=== PATIENT | female | born 1975 | race Caucasian/White ===

== ENCOUNTER 2020-10-27 16:11 | Inpatient (IN) ==
[2020-10-27] MEDS ORDERED: diphenhydrAMINE 50 MG/ML VIAL IV STA (17:10)
[2020-10-27] MEDS ORDERED: ONDANSETRON INJ 2 MG/ML 2 ML VIAL IV STA (17:10)
[2020-10-27] MEDS ORDERED: LABETALOL HCL IV 5 MG/ML 20ML IV STA (17:10)
[2020-10-27 17:49] LABS: Basophils # (auto) 0.03 K/uL (0-0.2); Basophils % (auto) 0.3 %; Hematocrit (blood only) 43.6 % (37-47); Hemoglobin 14.7 g/dL (12.0-16.0); Immature Granulocytes # (auto) 0.01 K/uL (0.00-0.02); Immature Granulocytes % (auto) 0.1 %; Lymphocytes # (auto) 0.96 K/uL (1.2-3.4); Mean Corpuscular Hemoglobin 29.7 pg (25-34); Mean Corpuscular Hgb Conc 33.7 g/dL (32-36); Mean Corpuscular Volume 88.1 fL (80-100); Mean Platelet Volume 10.8 fL (7.4-10.4); Monocytes # (auto) 0.41 K/uL (0.11-0.59); Monocytes % (auto) 4.3 %; Neutrophils # (auto) 8.17 K/uL (1.4-6.5); Neutrophils % (auto) 85.3 %; Platelet Count 354 K/uL (130-400); RDW Coefficient of Variation 12.6 % (11.5-14.5); RDW Standard Deviation 40.5 fL (36.4-46.3); Red Blood Count 4.95 M/uL (4.2-5.4); White Blood Count 9.58 K/uL (4.8-10.8)
--- NOTE | 2020-10-27 18:00 | CT Scan Report ---
CT SCAN OF THE BRAIN WITHOUT IV CONTRAST CLINICAL HISTORY: Dizziness and nausea. Hypertension. COMPARISON STUDY: No priors. TECHNIQUE: Unenhanced axial CT scan of the brain is performed from the vertex to the skull base. A d ose lowering technique was utilized adhering to the principles of ALARA. CT DOSE: 614.27 mGy.cm FINDINGS: Brain parenchyma: The brain parenchyma is normal in appearance. There is no hemorrhage, mass effect, or evidence of acute territorial ischemia by CT criteria. Nieto-white matter differentiation is preser ashanti. No extra-axial fluid collection is seen. Ventricles, sulci, cisterns: Normal in configuration. Intracranial vasculature: The visualized intracranial vasculature at the skull base is normal in appe arance. Calvarium: Unremarkable. Sinuses and mastoids: The visualized paranasal sinuses are clear. The mastoid air cells are well pneu matized. Orbits: The bony orbits are grossly intact. IMPRESSION: No acute intracranial abnormality. ACT 112: Negative or not required by law. Electronically signed by: Serjio Vargas M.D. 10/27/2020 5:59 PM
--- NOTE | 2020-10-27 18:03 | XRay Report ---
SINGLE VIEW CHEST CLINICAL HISTORY: Hypertension. FINDINGS: 2 AP, portable, upright chest radiographs are obtained. No prior studies are available for comparison at the time of dictation. The cardiomediastinal silhouette is unremarkable noting mild at herosclerotic calcification of the thoracic aorta. The lungs and pleural spaces are clear. No pneumot horax is seen. The bony thorax is grossly intact. IMPRESSION: No active disease in the chest. ACT 112: Negative or not required by law. Electronically signed by: Serjio Vargas M.D. 10/27/2020 6:02 PM
[2020-10-27 18:08] LABS: Albumin Level 3.8 gm/dl (3.4-5.0); BUN Creatinine Ratio 9.6 (10-20); Calcium 9.1 mg/dl (8.5-10.1); Creatinine Clr Calc Pharmacy 90.5 ml/min; Est GFR (African American) 118.4; Est GFR (Non-African American) 102.1; Potassium 4.2 mmol/L (3.5-5.1)
[2020-10-27 18:11] LABS: Albumin Globulin Ratio 0.9 (0.9-2); Bilirubin,Total 0.4 mg/dl (0.2-1); Globulin 4.1 gm/dl (2.5-4.0); Total Protein 7.9 gm/dl (6.4-8.2)
[2020-10-27] MEDS ORDERED: hydrALAZINE HCL 20 MG/ML VIAL IV STA ×2 (18:25→19:08)
--- NOTE | 2020-10-27 21:38 | History & Physical Report ---
Date of Service October 27, 2020 Assessment & Plan (1) Hypertensive urgency: 45-year-old female with no significant documented past medical history presents with concerns of dizziness admitted for hypertensive urgency. Hypertensive urgency Admit to med telemetry -BP as high as 243/179 on admission. No evidence of end organ injury. Urine microalbumin ordered and pending Patient does not have a PCP, and thus is not on any BP medications. It is likely the story that this is not new onset, rather undocumented history of such In ER patient received IV hydralazine 10 mg x 2, IV labetalol 10 mg We will start patient on p.o. lisinopril 20 mg and p.o. amlodipine 5 mg. Can titrate as necessary PRN IV hydralazine ordered Defer secondary hypertension work-up at present FEN/GI: Regular diet DVT prophylaxis: Low risk per admission calc, SCDs/ambulation CODE STATUS: Full code Dispo: Med telemetry History of Present Illness Chief Complaint: Dizziness Primary Care Provider: NO PCP 45-year-old female with no significant documented past medical history presents with concerns of dizziness that started yesterday afternoon. Patient notes that she was at work and felt dizzy, unsteady on her feet. However she attributed this to not eating or drinking all day. This morning when patient woke up she noted that the dizziness was even worse. Noting that she had to 'crawl to the bathroom.' No previous occurrence such as this ever before. Associated fatigue and headache. Patient otherwise denies any fevers, chills, sweats, chest pain, palpitations, shortness of breath, syncope or presyncope, diaphoresis, edema, visual changes, abdominal pain, urinary symptoms, recent travel anywhere or known sick contacts. Denies any other neurologic deficits such as slurred speech, focal weakness or numbness anywhere. Patient with no other acute concerns complaints. Upon arrival to ER BP as high as 243/179. Patient does endorse family history of hypertension in her father. Of note patient does not follow with any sort of PCP/family doctor. Does note that when she has gone to the dentist in the past they have told her that she has high blood pressure, patient does not recall exact numbers. Pertinent labs: Unremarkable CBC CMP EKG: NSR Chest x-ray: No active disease in the chest. Head CT: No acute intracranial abnormality. ER course: IV Benadryl 25 mg, IV hydralazine 10 mg x 2, IV labetalol 10 mg, IV Zofran 4 mg Allergies Allergy/AdvReac Type Severity Reaction Status Date / Time No Known Allergies Allergy Unknown NKA Unverified 12/01/02 08:19 Home Medications Medication Instructions Recorded Confirmed Type ibuprofen [Advil] 200 mg PO Q6H PRN 10/27/20 10/27/20 History multivitamin 1 tab PO QAM 10/27/20 10/27/20 History multivitamin with minerals 1 tab PO DAILY 10/27/20 10/27/20 History [Hair,Skin and Nails] amlodipine [Norvasc] 5 mg PO QAM #30 tab 10/28/20 Rx lisinopril 20 mg PO QAM #30 tab 10/28/20 Rx Past Med/Surg History Social History Smoking Status: Never smoker Do You Dip or Chew Tobacco: No; Hx Alcohol Use: No Hx Substance Use: No Preferred Language: Gambian Communication Ability: Effective [employer] Remover Required: No Beliefs That Will Affect Care: None Current Living Situation: Alone Current Living Situation Comment: 2 weeks ago Other Information That Helps Us Care for You: No Feels Safe at Home: Yes Safety Concerns: Feels Safe At This Time Assistive Devices: Walker Review of Systems Review of Systems: All systems reviewed & are unremarkable except as noted in HPI & below Physical Exam Constitutional: WD/WN, vitals as above Eyes: no papilledema Respiratory: normal respiratory effort, lungs clear to auscultation Cardiovascular: RRR, no murmur, no edema Gastrointestinal (Abdomen): normal bowel sounds, soft, nontender, no hepatosplenomegaly Skin: no rashes, warm and dry Psychiatric: A+Ox3, euthymic affect Results & Data Results & Data ([facility]) Vital Signs (Past 12 Hours) Vital Signs Temp Pulse Pulse Resp BP BP Pulse Ox 10/27/20 20:40 165/103 H 100 10/27/20 20:35 172/113 H 99 10/27/20 20:31 100 10/27/20 20:30 164/98 H 100 10/27/20 20:25 168/96 H 100 10/27/20 20:20 150/106 H 100 10/27/20 20:15 158/100 H 100 10/27/20 20:10 150/104 H 100 10/27/20 20:05 169/101 H 100 10/27/20 20:01 100 10/27/20 20:00 177/115 H 100 10/27/20 19:55 161/98 H 100 10/27/20 19:50 173/104 H 100 10/27/20 19:45 167/112 H 100 10/27/20 19:40 159/96 H 100 10/27/20 19:35 152/100 H 100 10/27/20 19:31 100 10/27/20 19:30 154/87 H 100 10/27/20 19:25 164/93 H 100 10/27/20 19:20 169/111 H 100 10/27/20 19:15 177/97 H 100 10/27/20 19:10 161/97 H 100 10/27/20 19:05 193/107 H 99 10/27/20 19:01 100 10/27/20 19:00 169/100 H 100 10/27/20 18:55 141/88 H 100 10/27/20 18:50 165/112 H 100 10/27/20 18:45 177/107 H 100 10/27/20 18:40 176/105 H 100 10/27/20 18:36 201/98 H 96 10/27/20 18:33 187/121 H 100 10/27/20 18:31 100 10/27/20 18:30 194/114 H 100 10/27/20 18:04 59 L 16 197/110 H 197/110 H 100 10/27/20 18:03 100 10/27/20 17:49 61 62 13 191/120 H 191/120 H 100 10/27/20 17:39 72 14 191/117 H 100 10/27/20 17:38 83 100 10/27/20 17:34 93 H 19 243/179 H 100 10/27/20 17:30 80 17 100 10/27/20 17:14 65 16 100 10/27/20 17:10 67 17 209/122 H 100 10/27/20 16:16 36.9 C 101 H 18 189/123 H 100 Laboratory Results Laboratory Results - last 24 hr 10/27/20 10/27/20 17:32 17:32 WBC 9.58 RBC 4.95 Hgb 14.7 Hct 43.6 MCV 88.1 MCH 29.7 MCHC 33.7 RDW Std Deviation 40.5 RDW Coeff of Vadim 12.6 Plt Count 354 MPV 10.8 H Immature Gran % (Auto) 0.1 Neut % (Auto) 85.3 Lymph % (Auto) 10.0 Lea % (Auto) 4.3 Eos % (Auto) 0.0 Baso % (Auto) 0.3 Neut # (Auto) 8.17 H Lymph # (Auto) 0.96 L Lea # (Auto) 0.41 Eos # (Auto) 0.00 Baso # (Auto) 0.03 Immature Gran # (Auto) 0.01 Sodium 139 Potassium 4.2 Chloride 108 H Carbon Dioxide 26 Anion Gap 5.0 BUN 7 Creatinine 0.71 Est Cr Clr Drug Dosing 90.5 Est GFR ( Amer) 118.4 Est GFR (Non-Af Amer) 102.1 BUN/Creatinine Ratio 9.6 L Glucose 120 H Calcium 9.1 Total Bilirubin 0.4 AST 11 L ALT 22 Alkaline Phosphatase 65 Total Protein 7.9 Albumin 3.8 Globulin 4.1 H Albumin/Globulin Ratio 0.9 Code Status & VTE Plan Code Status Full Supervising Physician Co-Signing Physician Notes Attending addendum: I have physically seen this patient, have supervised the medical residents activities, and agree with the H&P unless as otherwise noted. Assessment and Plan: Hypertensive urgency- The patient will be admitted to telemetry for serial cardiac enzymes, serial EKG's, cardiac rhythm monitoring and a 2-D echocardiogram with Dopplers. Status post labetalol 10 mg IV and hydralazine 10 mg IV x2 in the ED. Start oral regimen with lisinopril 20 mg and amlodipine 5 mg x 1 tonight, and then every morning starting tomorrow Hydralazine 10 mg IV every 4 hours as needed for systolic below blood pressure greater than 150 Check a fasting lipid panel and hemoglobin A1c Remainder of orders and notations as noted Resident Activity Tracking Resident Involvement: Resident Care Provided Care Provided: Adult Hospital Medicine
--- NOTE | 2020-10-27 23:14 | Emergency Department Note ---
Impression & Plan Hypertensive urgency ED Provider Note NAME: LETICIA MORSE AGE: 45 SEX: F ARRIVES VIA: Walk-In INFORMANT: Patient ED PROVIDER(S): Angie Bonds MD CHIEF COMPLAINT: Dizzy, nausea, hard to walk straight PLAN: Disposition: inpatient Condition: Fair Referral: hospitalist MEDICAL DECISION MAKING:This pt was evaluated and appeared to be in no distress. IV access was obtained and lab work was drawn. Pt was placed on the cut off tender glass and found to be in a NSR at 101 bpm. CXR was performed and is neg for acute abnl. Pt was noted to be markedly hypertensive. There was no notable neurologic deficit. Pt was given IV labetalol 10 mg with some improvement. CT head was negative for acute abnl. Pt was given hydralazine 10 mg d/t drop in HR to 67 after labetalol. Lab work is reassuring. Pt responded to IV zofran and benadryl for dizziness. Case was d/w the hospitalist service for further manage ment. Triage Nursing notes reviewed. Prior medical records reviewed, [employer] for previous providers Vital Signs: reviewed and remarkable for no significant abnormalities Differential diagnosis: Benign positional vertigo, dehydration, hypovolemia, anemia, tumor, infection, hypoglycemia, electrolyte abnormalities, cardiac sources, intracerebral event, toxicologic, neurologic, as well as other pathologies. ER treatment provided: IV labetalol IV hydralazine IV benadryl IV zofran Diagnostics interpreted by me: ECG: NSR at 76 bpm, likely LVH, normal ST segments, no PVC, no PAC, normal axis. Cardiac Monitoring: An order for cardiac monitoring was placed and the pt was found to be in a NSR at 101 bpm. Laboratory studies: See below Imaging studies: SINGLE VIEW CHEST CLINICAL HISTORY: Hypertension. FINDINGS: 2 AP, portable, upright chest radiographs are obtained. No prior studies are available for comparison at the time of dictation. The cardiomedias tinal silhouette is unremarkable noting mild atherosclerotic calcification of the thoracic aorta. The lungs and pleural spaces are clear. No pneumothorax is seen. The bony thorax is grossly intact. IMPRESSION: No active disease in the chest. ACT 112: Negative or not required by law. Electronically signed by: Serjio Vargas M.D. 10/27/2020 6:02 PM Dictated: 10/27/201801Transcribed: 10/27/201801 CT SCAN OF THE BRAIN WITHOUT IV CONTRAST CLINICAL HISTORY: Dizziness and nausea. Hypertension. COMPARISON STUDY: No priors. TECHNIQUE: Unenhanced axial CT scan of the brain is performed from the vertex to the skull base. A dose lowering technique was utilized adhering to the principles of ALARA. CT DOSE: 614.27 mGy.cm FINDINGS: Brain parenchyma: The brain parenchyma is normal in appearance. There is no hemorrhage, mass effect, or evidence of acute territorial ischemia by CT crit eria. Nieto-white matter differentiation is preserved. No extra-axial fluid collection is seen. Ventricles, sulci, cisterns: Normal in configuration. Intracranial vasculature: The visualized intracranial vasculature at the skull base is normal in appearance. Calvarium: Unremarkable. Sinuses and mastoids: The visualized paranasal sinuses are clear. The mastoid air cells are well pneumatized. Orbits: The bony orbits are grossly intact. IMPRESSION: No acute intracranial abnormality. ACT 112: Negative or not required by law. Electronically signed by: Serjio Vargas M.D. 10/27/2020 5:59 PM Dictated: 10/27/201757Transcribed: 10/27/201757 Consultation(s): hospitalist HPI: 45/F arrives for evaluation of dizziness that has been present since yesterday at 1430. Pt states it was rather sudden onset, it is difficult to ambulate in a straight line. She holds onto addison for assistance. She is nauseated but denies BOWERS. She denies speech issues, visual changes, neck pain or similar issues in the past. pt has not seen her doctor in years, but knows she has a high BP. She does not take medications. She denies recent fever, chills, CP, SOB, or known COVID exposures. ROS: See above HPI for pertinent positives & negatives. A total of 10 systems reviewed and were otherwise negative. PAST MEDICAL HISTORY:See Below PAST SURGICAL HISTORY:See Below FAMILY HISTORY:See Below SOCIAL HISTORY:See Below HOME MEDICATIONS:See Below ALLERGIES:See Below VITALS:See Below PHYSICAL EXAMINATION: Vital signs reviewed. Noted to be markedly hypertensive General: Well-appearing 45 yo female, anxious but in no significant distress. HEENT: No scleral icterus, PERRLA, neck supple. no nystagmus appreciated Cardiovascular: Regular rate and rhythm, no extra sounds. Pulmonary: Clear to auscultation bilaterally, normal work of breathing. Abdomen: Soft, nontender, nondistended, positive bowel sounds. Musculoskeletal: Atraumatic, no peripheral edema. Neurologic: Patient awake alert and oriented x 3, full strength in all 4 extr emities. Cranial nerves 2 through 12 grossly intact. Skin: Warm, dry, no rash The high probability of a clinically significant, sudden or life threatening deterioration required my full and direct attention, intervention and personal management. The aggregate critical care time was 40 minutes. This time is in addition to time spent performing reported procedures but includes the following: [x] Data Review and interpretation [x] Patient assessment and monitoring of vital signs [x] Documentation [x] Medication orders and management Angie Bonds MD Past Med/Surg History Social History (Updated 10/29/20 @ 14:38 by Angie Bonds MD) Smoking Status: Never smoker Do You Dip or Chew Tobacco: No; Hx Alcohol Use: No Hx Substance Use: No Preferred Language: Italian Communication Ability: Effective Associate Project Manager Required: No Beliefs That Will Affect Care: None Current Living Situation: Alone Other Information That Helps Us Care for You: No Feels Safe at Home: Yes Safety Concerns: Feels Safe At This Time Allergies Allergies Allergy/AdvReac Type Severity Reaction Status Date / Time No Known Allergies Allergy Unknown NKA Unverified 12/01/02 08:19 Home Meds Home Medications Medication Instructions Recorded Confirmed ibuprofen [Advil] 200 mg PO Q6H PRN 10/27/20 10/27/20 multivitamin 1 tab PO QAM 10/27/20 10/27/20 multivitamin with minerals 1 tab PO DAILY 10/27/20 10/27/20 [Hair,Skin and Nails] Previous Rx's Medication Instructions Recorded amlodipine [Norvasc] 5 mg PO QAM #30 tab 10/28/20 lisinopril 20 mg PO QAM #30 tab 10/28/20 Results & Data (ED) Vital Signs Vital Signs - 24 hr 10/28/20 15:30 10/28/20 17:14 10/28/20 19:21 Temperature 36.8 C 36.9 C Temperature Source Oral Pulse Rate 91 H Pulse Rate [Right Finger] 87 90 Pulse Rhythm [Right Finger] Regular Pulse Strength [Right Finger] Normal Respiratory Rate 16 16 Respiratory Effort / Characteristics Non-Labored Spontaneous Respiratory Depth Normal Respiratory Pattern Regular Blood Pressure [Left Arm] 127/76 Blood Pressure [Right Arm] 136/87 119/79 Blood Pressure Mean [Left Arm] 93 Blood Pressure Mean [Right Arm] 92 Blood Pressure Position [Left Arm] Lying Blood Pressure Position [Right Arm] Lying Pulse Oximetry 99 98 Oxygen Delivery Method Room Air 10/28/20 23:28 10/28/20 23:35 10/29/20 03:00 Temperature 37.1 C 36.9 C Temperature Source Oral Oral Pulse Rate 63 Pulse Rate [Right Finger] 75 70 Pulse Rhythm [Right Finger] Regular Regular Pulse Strength [Right Finger] Normal Normal Respiratory Rate 16 20 Respiratory Effort / Characteristics Non-Labored Spontaneous Respiratory Depth Normal Normal Respiratory Pattern Regular Blood Pressure [Left Arm] 129/85 Blood Pressure [Right Arm] 134/89 Blood Pressure Mean [Left Arm] 99 Blood Pressure Mean [Right Arm] 104 Blood Pressure Position [Left Arm] Lying Blood Pressure Position [Right Arm] Lying Pulse Oximetry 100 99 Oxygen Delivery Method Room Air Room Air 10/29/20 07:13 10/29/20 07:48 Temperature 36.6 C Temperature Source Oral Pulse Rate 78 Pulse Rate [Right Finger] 89 Pulse Rhythm [Right Finger] Pulse Strength [Right Finger] Respiratory Rate 18 Respiratory Effort / Characteristics Respiratory Depth Respiratory Pattern Blood Pressure [Left Arm] Blood Pressure [Right Arm] 125/77 Blood Pressure Mean [Left Arm] Blood Pressure Mean [Right Arm] 93 Blood Pressure Position [Left Arm] Blood Pressure Position [Right Arm] Lying Pulse Oximetry 97 Oxygen Delivery Method Laboratory Data Attestation: I reviewed the patient's lab results. Result diagrams: 10/28/20 06:27 10/28/20 06:27 Lab Results 10/27/20 10/27/20 10/27/20 Range/Units 17:32 17:32 22:52 WBC 9.58 (4.8-10.8) K/uL RBC 4.95 (4.2-5.4) M/uL Hgb 14.7 (12.0-16.0) g/dL Hct 43.6 (37-47) % MCV 88.1 (80-100) fL MCH 29.7 (25-34) pg MCHC 33.7 (32-36) g/dL RDW Std Deviation 40.5 (36.4-46.3) fL RDW Coeff of Vadim 12.6 (11.5-14.5) % Plt Count 354 (130-400) K/uL MPV 10.8 H (7.4-10.4) fL Immature Gran % (Auto) 0.1 % Neut % (Auto) 85.3 % Lymph % (Auto) 10.0 % Ector % (Auto) 4.3 % Eos % (Auto) 0.0 % Baso % (Auto) 0.3 % Neut # (Auto) 8.17 H (1.4-6.5) K/uL Lymph # (Auto) 0.96 L (1.2-3.4) K/uL Ector # (Auto) 0.41 (0.11-0.59) K/uL Eos # (Auto) 0.00 (0-0.5) K/uL Baso # (Auto) 0.03 (0-0.2) K/uL Immature Gran # (Auto) 0.01 (0.00-0.02) K/uL Sodium 139 (136-145) mmol/L Potassium 4.2 (3.5-5.1) mmol/L Chloride 108 H (98-107) mmol/L Carbon Dioxide 26 (21-32) mmol/L Anion Gap 5.0 (3-11) BUN 7 (7-18) mg/dl Creatinine 0.71 (0.6-1.2) mg/dl Est Cr Clr Drug Dosing 90.5 ml/min Est GFR ( Amer) 118.4 Est GFR (Non-Af Amer) 102.1 BUN/Creatinine Ratio 9.6 L (10-20) Glucose 120 H (70-99) mg/dl Calcium 9.1 (8.5-10.1) mg/dl Iron (35-150) mcg/dl TIBC (250-450) mcg/dl Transferrin (200-360) mg/dl Ferritin (8-388) ng/ml Total Bilirubin 0.4 (0.2-1) mg/dl AST 11 L (15-37) U/L ALT 22 (12-78) U/L Alkaline Phosphatase 65 (45-117) U/L Total Protein 7.9 (6.4-8.2) gm/dl Albumin 3.8 (3.4-5.0) gm/dl Globulin 4.1 H (2.5-4.0) gm/dl Albumin/Globulin Ratio 0.9 (0.9-2) Vitamin B12 (193-986) pg/ml Folate (>5.38) ng/ml TSH (0.300-4.500) uIu/ml Ur Random Microalbumin mg/L Lyme Disease IgG Ab (Negative) Lyme Disease IgM Ab (Negative) [facility] SARS-[facility]-2, RNA, NAAT (NEGATIVE) 10/27/20 10/28/20 10/28/20 Range/Units 22:52 06:27 06:27 WBC 11.48 H (4.8-10.8) K/uL RBC 4.77 (4.2-5.4) M/uL Hgb 13.9 (12.0-16.0) g/dL Hct 42.1 (37-47) % MCV 88.3 (80-100) fL MCH 29.1 (25-34) pg MCHC 33.0 (32-36) g/dL RDW Std Deviation 41.5 (36.4-46.3) fL RDW Coeff of Vadim 12.8 (11.5-14.5) % Plt Count 372 (130-400) K/uL MPV 10.8 H (7.4-10.4) fL Immature Gran % (Auto) 0.3 % Neut % (Auto) 76.2 % Lymph % (Auto) 17.9 % Ector % (Auto) 5.4 % Eos % (Auto) 0.0 % Baso % (Auto) 0.2 % Neut # (Auto) 8.75 H (1.4-6.5) K/uL Lymph # (Auto) 2.05 (1.2-3.4) K/uL Ector # (Auto) 0.62 H (0.11-0.59) K/uL Eos # (Auto) 0.00 (0-0.5) K/uL Baso # (Auto) 0.02 (0-0.2) K/uL Immature Gran # (Auto) 0.04 H (0.00-0.02) K/uL Sodium 139 (136-145) mmol/L Potassium 4.1 (3.5-5.1) mmol/L Chloride 110 H (98-107) mmol/L Carbon Dioxide 25 (21-32) mmol/L Anion Gap 4.0 (3-11) BUN 8 (7-18) mg/dl Creatinine 0.67 (0.6-1.2) mg/dl Est Cr Clr Drug Dosing 108.1 ml/min Est GFR ( Amer) 122.2 Est GFR (Non-Af Amer) 105.4 BUN/Creatinine Ratio 12.6 (10-20) Glucose 101 H (70-99) mg/dl Calcium 9.3 (8.5-10.1) mg/dl Iron (35-150) mcg/dl TIBC (250-450) mcg/dl Transferrin (200-360) mg/dl Ferritin (8-388) ng/ml Total Bilirubin (0.2-1) mg/dl AST (15-37) U/L ALT (12-78) U/L Alkaline Phosphatase (45-117) U/L Total Protein (6.4-8.2) gm/dl Albumin (3.4-5.0) gm/dl Globulin (2.5-4.0) gm/dl Albumin/Globulin Ratio (0.9-2) Vitamin B12 (193-986) pg/ml Folate (>5.38) ng/ml TSH (0.300-4.500) uIu/ml Ur Random Microalbumin mg/L Lyme Disease IgG Ab (Negative) Lyme Disease IgM Ab (Negative) COVID-19 Eval Order SARS-CoV-2, RNA, NAAT NEGATIVE (NEGATIVE) 10/28/20 10/29/20 10/29/20 Range/Units Unknown 07:49 07:49 WBC (4.8-10.8) K/uL RBC (4.2-5.4) M/uL Hgb (12.0-16.0) g/dL Hct (37-47) % MCV (80-100) fL MCH (25-34) pg MCHC (32-36) g/dL RDW Std Deviation (36.4-46.3) fL RDW Coeff of Vadim (11.5-14.5) % Plt Count (130-400) K/uL MPV (7.4-10.4) fL Immature Gran % (Auto) % Neut % (Auto) % Lymph % (Auto) % Ector % (Auto) % Eos % (Auto) % Baso % (Auto) % Neut # (Auto) (1.4-6.5) K/uL Lymph # (Auto) (1.2-3.4) K/uL Ector # (Auto) (0.11-0.59) K/uL Eos # (Auto) (0-0.5) K/uL Baso # (Auto) (0-0.2) K/uL Immature Gran # (Auto) (0.00-0.02) K/uL Sodium (136-145) mmol/L Potassium (3.5-5.1) mmol/L Chloride (98-107) mmol/L Carbon Dioxide (21-32) mmol/L Anion Gap (3-11) BUN (7-18) mg/dl Creatinine (0.6-1.2) mg/dl Est Cr Clr Drug Dosing ml/min Est GFR ( Amer) Est GFR (Non-Af Amer) BUN/Creatinine Ratio (10-20) Glucose (70-99) mg/dl Calcium (8.5-10.1) mg/dl Iron 59 (35-150) mcg/dl TIBC 372 (250-450) mcg/dl Transferrin 273 (200-360) mg/dl Ferritin (8-388) ng/ml Total Bilirubin (0.2-1) mg/dl AST (15-37) U/L ALT (12-78) U/L Alkaline Phosphatase (45-117) U/L Total Protein (6.4-8.2) gm/dl Albumin (3.4-5.0) gm/dl Globulin (2.5-4.0) gm/dl Albumin/Globulin Ratio (0.9-2) Vitamin B12 (193-986) pg/ml Folate (>5.38) ng/ml TSH (0.300-4.500) uIu/ml Ur Random Microalbumin 11.4 mg/L Lyme Disease IgG Ab Negative (Negative) Lyme Disease IgM Ab Negative (Negative) COVID-19 Eval Order SARS-CoV-2, RNA, NAAT (NEGATIVE) 10/29/20 10/29/20 Range/Units 07:49 07:49 WBC (4.8-10.8) K/uL RBC (4.2-5.4) M/uL Hgb (12.0-16.0) g/dL Hct (37-47) % MCV (80-100) fL MCH (25-34) pg MCHC (32-36) g/dL RDW Std Deviation (36.4-46.3) fL RDW Coeff of Vadim (11.5-14.5) % Plt Count (130-400) K/uL MPV (7.4-10.4) fL Immature Gran % (Auto) % Neut % (Auto) % Lymph % (Auto) % Ector % (Auto) % Eos % (Auto) % Baso % (Auto) % Neut # (Auto) (1.4-6.5) K/uL Lymph # (Auto) (1.2-3.4) K/uL Ector # (Auto) (0.11-0.59) K/uL Eos # (Auto) (0-0.5) K/uL Baso # (Auto) (0-0.2) K/uL Immature Gran # (Auto) (0.00-0.02) K/uL Sodium (136-145) mmol/L Potassium (3.5-5.1) mmol/L Chloride (98-107) mmol/L Carbon Dioxide (21-32) mmol/L Anion Gap (3-11) BUN (7-18) mg/dl Creatinine (0.6-1.2) mg/dl Est Cr Clr Drug Dosing ml/min Est GFR ( Amer) Est GFR (Non-Af Amer) BUN/Creatinine Ratio (10-20) Glucose (70-99) mg/dl Calcium (8.5-10.1) mg/dl Iron (35-150) mcg/dl TIBC (250-450) mcg/dl Transferrin (200-360) mg/dl Ferritin 15.6 (8-388) ng/ml Total Bilirubin (0.2-1) mg/dl AST (15-37) U/L ALT (12-78) U/L Alkaline Phosphatase (45-117) U/L Total Protein (6.4-8.2) gm/dl Albumin (3.4-5.0) gm/dl Globulin (2.5-4.0) gm/dl Albumin/Globulin Ratio (0.9-2) Vitamin B12 281 (193-986) pg/ml Folate 9.40 (>5.38) ng/ml TSH 0.989 (0.300-4.500) uIu/ml Ur Random Microalbumin mg/L Lyme Disease IgG Ab (Negative) Lyme Disease IgM Ab (Negative) COVID-19 Eval Order SARS-CoV-2, RNA, NAAT (NEGATIVE) Administered Medications Acetaminophen (Acetaminophen 325 Mg Tab) 650 mg PO Q4H PRN PRN Reason: Pain or Fever Stop: 11/27/20 00:16 Last Admin: 10/29/20 08:10 Dose: 650 mg Documented by: [id number] Amlodipine Besylate (Amlodipine Besylate 5 Mg Tab) 5 mg PO [facility] Stop: 11/27/20 00:16 Last Admin: 10/29/20 08:08 Dose: 5 mg Documented by: [id number] Admin: 10/28/20 08:33 Dose: 5 mg Documented by: [id number] Admin: 10/28/20 01:11 Dose: 5 mg Documented by: [id number] Calcium Carbonate (Calcium Carbonate 500 Mg Chewable Tab) 500 mg PO Q6H PRN PRN Reason: Indigestion Stop: 11/27/20 10:48 Last Admin: 10/28/20 11:48 Dose: 500 mg Documented by: [id number] Cyanocobalamin (Cyanocobalamin 1000 Mcg/Ml Vial) 1,000 mcg IM DAILY [facility] Stop: 11/28/20 10:59 Last Admin: 10/29/20 11:19 Dose: 1,000 mcg Documented by: [id number] Lisinopril (Lisinopril 20 Mg Tab) 20 mg PO [facility] Stop: 11/27/20 00:16 Last Admin: 10/29/20 08:08 Dose: 20 mg Documented by: [id number] Admin: 10/28/20 08:33 Dose: 20 mg Documented by: [id number] Admin: 10/28/20 01:11 Dose: 20 mg Documented by: [id number] Thiamine HCl (Thiamine Hcl 100 Mg Tab) 100 mg PO [facility] Stop: 11/28/20 10:59 Last Admin: 10/29/20 11:19 Dose: 100 mg Documented by: [id number] Discontinued Medications Diphenhydramine HCl (Diphenhydramine 50 Mg/Ml Vial) 25 mg IV NOW [facility] Stop: 10/27/20 17:11 Last Admin: 10/27/20 17:35 Dose: 25 mg Documented by: [id number] Gadobutrol (Gadobutrol 30ml Vial) 9 ml IV ONCE ONE Stop: 10/28/20 21:33 Last Admin: 10/28/20 21:33 Dose: 9 ml Documented by: [id number] Hydralazine HCl (Hydralazine Hcl 20 Mg/Ml Vial) 10 mg IV NOW STA Stop: 10/27/20 18:26 Last Admin: 10/27/20 18:34 Dose: 10 mg Documented by: [id number] Hydralazine HCl (Hydralazine Hcl 20 Mg/Ml Vial) 10 mg IV NOW STA Stop: 10/27/20 19:09 Last Admin: 10/28/20 01:02 Dose: Not Given Documented by: [id number] Multivitamins 10 ml/ Thiamine HCl 100 mg/ Folic Acid 1 mg/Sodium Chloride 1,011.2 mls @ 1,011.2 mls/hr IV .Q1H ONE Stop: 10/29/20 11:59 Last Infusion: 10/29/20 12:21 Dose: 0 mls/hr Documented by: [id number] Admin: 10/29/20 11:18 Dose: 1,011.2 mls/hr Documented by: [id number] Labetalol HCl (Labetalol Hcl Iv 5 Mg/Ml 20ml) 10 mg IV NOW STA Stop: 10/27/20 17:11 Last Admin: 10/27/20 17:42 Dose: 10 mg Documented by: [id number] Cosigned by: [id number] Ondansetron HCl (Ondansetron Inj 2 Mg/Ml 2 Ml Vial) 4 mg IV NOW STA Stop: 10/27/20 17:11 Last Admin: 10/27/20 17:35 Dose: 4 mg Documented by: [id number] Blood Pressure Blood Pressure Findings: Elevated blood pressure Blood Pressure Disposition: further management by hospitalist Discharge Plan Visit Data Chief Complaint: Dizziness Stated Complaint: DIZZY ED Provider: Angie Bonds Discharge Problem: Hypertensive urgency Patient Disposition: Admitted As Inpatient Discharge Instructions Interventions: ED Discharge Assessment Last Done: 10/27/20 23:36
[2020-10-28] MEDS ORDERED: ONDANSETRON INJ 2 MG/ML 2 ML VIAL IV PRN (00:17)
[2020-10-28] MEDS ORDERED: ALUMINUM/MAGNESIUM SUSP 30 ML UDC PO PRN (00:17)
[2020-10-28] MEDS ORDERED: ACETAMINOPHEN 325 MG TAB PO PRN (00:17)
[2020-10-28] MEDS ORDERED: hydrALAZINE HCL 20 MG/ML VIAL IV PRN (00:17)
[2020-10-28] MEDS: lisinopril 20 MG TAB PO SCH ×2 (01:11→08:33)
[2020-10-28] MEDS: amLODIPine BESYLATE 5 MG TAB PO SCH ×2 (01:11→08:33)
[2020-10-28 06:59] LABS: Basophils # (auto) 0.02 K/uL (0-0.2); Basophils % (auto) 0.2 %; Hematocrit (blood only) 42.1 % (37-47); Hemoglobin 13.9 g/dL (12.0-16.0); Immature Granulocytes # (auto) 0.04 K/uL (0.00-0.02); Immature Granulocytes % (auto) 0.3 %; Lymphocytes # (auto) 2.05 K/uL (1.2-3.4); Lymphocytes % (auto) 17.9 %; Mean Corpuscular Hemoglobin 29.1 pg (25-34); Mean Corpuscular Volume 88.3 fL (80-100); Mean Platelet Volume 10.8 fL (7.4-10.4); Monocytes # (auto) 0.62 K/uL (0.11-0.59); Monocytes % (auto) 5.4 %; Neutrophils # (auto) 8.75 K/uL (1.4-6.5); Neutrophils % (auto) 76.2 %; Platelet Count 372 K/uL (130-400); RDW Coefficient of Variation 12.8 % (11.5-14.5); RDW Standard Deviation 41.5 fL (36.4-46.3); Red Blood Count 4.77 M/uL (4.2-5.4); White Blood Count 11.48 K/uL (4.8-10.8)
[2020-10-28 07:28] LABS: BUN Creatinine Ratio 12.6 (10-20); Calcium 9.3 mg/dl (8.5-10.1); Creatinine Clr Calc Pharmacy 108.1 ml/min; Est GFR (African American) 122.2; Est GFR (Non-African American) 105.4; Potassium 4.1 mmol/L (3.5-5.1)
--- NOTE | 2020-10-28 07:46 | Electrocardiogram Report ---
Test Reason : Blood Pressure : / mmHG Vent. Rate : 076 BPM Atrial Rate : 076 BPM P-R Int : 134 ms QRS Dur : 082 ms QT Int : 398 ms P-R-T Axes : 065 010 017 degrees QTc Int : 447 ms Normal sinus rhythm Minimal voltage criteria for LVH, may be normal variant Borderline ECG No previous ECGs available Confirmed by Felix Hernandez ([id number]) on 10/28/2020 7:46:01 AM Referred By: REFERRED SELF Confirmed By:Felix Hernandez
[2020-10-28] MEDS ORDERED: CALCIUM CARBONATE 500 MG CHEWABLE TAB PO PRN (10:49)
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
[2020-10-28] MEDS ORDERED: GADOBUTROL 30ML VIAL IV ONE (21:32)
--- NOTE | 2020-10-28 22:27 | Magnetic Resonance Report ---
MR brain wo con HISTORY: 45 years-old Female UE numbness acute numbness of the upper extremities COMPARISON: MRA head and neck of same day, head CT 10/27/2020 TECHNIQUE: Multiplanar multisequence MRI of the brain obtained without the use of IV contrast. FINDINGS: Safety Net Maker localizer images demonstrate no gross extracranial abnormality. There is no restricted diffusio n to suggest acute or subacute infarct. No acute intracranial hemorrhage, midline shift, abnormal ext ra-axial collection, hydrocephalus or intracranial mass. No pathologic blooming artifact on the T2 st ar series. Mild scattered T2/FLAIR hyperintensities are noted within the subcortical and periventricu lar white matter of the cerebral hemispheres. Cerebral venous sinuses and major arterial flow voids appear patent. Mastoid air cells and paranasal sinuses appear clear. Skull, orbits and soft tissues are unremarkable. IMPRESSION: 1. No acute intracranial abnormality, specifically there is no evidence of acute or subacute infarct. 2. Patchy white matter T2/FLAIR hyperintensities are nonspecific. The primary differential considerat ions would include chronic microvascular ischemic disease versus a demyelinating process. ACT 112: Negative or not required by law. The above report was generated using voice recognition software. It may contain grammatical, syntax o r spelling errors. Electronically signed by: Austin Easton M.D. 10/28/2020 10:26 PM
--- NOTE | 2020-10-28 22:35 | Magnetic Resonance Report ---
MR angio head wo con HISTORY: 45 years-old Female UE numbness acute numbness of the right upper extremity COMPARISON: Brain MRI of same day TECHNIQUE: MRA of the head was obtained without the use of IV contrast utilizing 3-D [id number] s equencing with MIP reformats. All measurements were obtained according to NASCET criteria. FINDINGS: Construction Operations Manager localizer images demonstrate no gross extracranial abnormality. The bilateral internal carotid arteries are widely patent. The middle and anterior cerebral arteries are also patent. The distal faby tebral arteries, basilar and posterior cerebral arteries appear normal. No aneurysm, dissection, high -grade stenosis or proximal branch occlusion. IMPRESSION: Unremarkable MRA of the head. ACT 112: Negative or not required by law. The above report was generated using voice recognition software. It may contain grammatical, syntax o r spelling errors. Electronically signed by: Austin Easton M.D. 10/28/2020 10:34 PM
--- NOTE | 2020-10-28 22:54 | Magnetic Resonance Report ---
MR angio neck wo/w con HISTORY: 45 years-old Female UE numbness acute right hand numbness with strokelike symptoms COMPARISON: Brain MRI and MRA head of same day TECHNIQUE: MRA of the neck was obtained both with and without 9.0 mL Gadavist utilizing 3-D time-of-f light sequencing with MIP reformats. All measurements were obtained according to NASCET criteria. FINDINGS: Line Pilot localizer images demonstrate no gross abnormality. The common and internal carotid arteries are widely patent. Codominant and widely patent vertebral arteries. The thoracic aortic arch, innominate and imaged subclavian arteries appear patent. IMPRESSION: Unremarkable MRA of the neck. ACT 112: Negative or not required by law. The above report was generated using voice recognition software. It may contain grammatical, syntax o r spelling errors. Electronically signed by: Austin Easton M.D. 10/28/2020 10:52 PM
--- NOTE | 2020-10-29 05:40 | Billing Data ---
Date of Service October 29, 2020 Coding Level of Care Code 94806 OBS Care - Level 3
[2020-10-29] MEDS: lisinopril 20 MG TAB PO SCH (08:08)
[2020-10-29] MEDS: amLODIPine BESYLATE 5 MG TAB PO SCH (08:08)
[2020-10-29 08:43] LABS: Iron 59 mcg/dl (35-150); Total Iron Binding Capacity 372 mcg/dl (250-450); Transferrin 273 mg/dl (200-360)
[2020-10-29 08:50] LABS: Ferritin 15.6 ng/ml (8-388); Thyroid Stimulating Hormone 0.989 uIu/ml (0.300-4.500)
[2020-10-29 09:06] LABS: Lyme Ab IgM w/WB Rflx Negative (Negative)
[2020-10-29 09:07] LABS: Lyme Ab IgG w/WB Rflx Negative (Negative)
[2020-10-29 09:18] LABS: Folate (Folic Acid) 9.4 ng/ml (>5.38)
--- NOTE | 2020-10-29 10:42 | Hospitalist Progress Note ---
Date of Service October 29, 2020 Assessment & Plan (1) Hypertensive urgency: 45-year-old female with no significant documented past medical history presents with concerns of dizziness admitted for hypertensive urgency. -BP as high as 243/179 on admission. No evidence of end organ injury. Urine microalbumin ordered and pending Denies hx of prior HTN, see above for further details Improved with lisinopril 20 mg and p.o. amlodipine 5 mg Related to lack of sleep vs diet vs replacement of Nexplanon vs stress? Pt had been without hormonal control for at least 2 years until her Nexplanon was replaced in August Of note, when discussing her stress, I did mention the possibility of short term SSRI use as pt reports feeling overwhelmed often Pt does not wish to start this now given the other new medications, but I did advise her to d/w new PCP Patient does not have a PCP, she requested referral to [facility] [place] [place] at [facility] c/s sent to request set up new pt appt when offices open on Friday (2) Ambulatory dysfunction: MRI noted for nonspecific demyelination MRA head/neck WNL B12 at 281 Folate, TSH, iron panel WNL Cu, RPR, B1 pending Lyme neg Start B12 injections QD x5 (first 10/29), then to Qweek x4, then Qmonth Start B1 PO Banana bag Neuro c/s pending for further recs Admission and Anticipated Discharge Date Admission Date: October 27, 2020 Subjective Pt was set for d/c yesterday after feeling improved in the afternoon, however as she was attempting to transfer from the wheelchair to her daughter's car, she could barely lift her feet and was unable to do so without full assistance. Pt also noted that she had decreased sensation to her R UE and R LE. She states that this was present when she came in, but she had not mentioned it. Today, pt with ongoing dizziness, although she feels it remains better than FOOD TRADES ASSISTANTS. Ate without issue. Ongoing RUE/LE decreased sensation. Pt denies fever, SOB, chest pain, abd pain, n/v/c/d, LE pain or swelling. She states she feels very tired today. Physical Exam Constitutional: WD/WN, vitals as above Eyes: normal visual gunter by confrontation and + anicteric sclerae Neck: normal visual inspection and trachea midline Respiratory: normal respiratory effort, lungs clear to auscultation Cardiovascular: Rate/Rhythm: regular rate and regular rhythm Gastrointestinal (Abdomen): Inspection/Auscultation: abdomen not distended Percussion/Palpation: abdomen soft; abdomen nontender Musculoskeletal: Head/Neck/Chest: normocephalic and head atraumatic Skin: no rashes, warm and dry Neurologic: awake; not confused Speech / Cognition: normal speech Psychiatric: A+Ox3, euthymic affect Results & Data Results & Data ([facility]) Vital Signs (Past 12 Hours) Vital Signs Temp Pulse Pulse Resp BP BP Pulse Ox 10/29/20 07:48 78 10/29/20 07:13 36.6 C 89 18 125/77 97 10/29/20 03:00 36.9 C 70 20 129/85 99 10/28/20 23:35 63 10/28/20 23:28 37.1 C 75 16 134/89 100 PG Care Time/CCT Total # of Minutes Spent Total Time Spent with Patient: Total time spent is greater than 50% in coordination of care (as documented) at patient's floor/unit and/or counseling patient: Coding Level of Care Code 45765 Subseq Hosp Care Lvl 3 Diagnoses Hypertensive urgency I16.0 Ambulatory dysfunction R26.2
[2020-10-29] MEDS ORDERED: MULTI-VITAMIN INFUSION 10 ML, THIAMINE HCL 100 MG, FOLIC ACID 1 MG in SODIUM CHLORIDE 0... IV ONE (11:00)
[2020-10-29] MEDS: CYANOCOBALAMIN 1000 MCG/ML VIAL IM SCH (11:19)
[2020-10-29] MEDS: THIAMINE HCL 100 MG TAB PO SCH (11:19)
[2020-10-30] MEDS: THIAMINE HCL 100 MG TAB PO SCH (08:17)
[2020-10-30] MEDS: amLODIPine BESYLATE 5 MG TAB PO SCH (08:17)
[2020-10-30] MEDS: CYANOCOBALAMIN 1000 MCG/ML VIAL IM SCH (08:17)
[2020-10-30] MEDS: lisinopril 20 MG TAB PO SCH (08:18)
--- NOTE | 2020-10-30 09:14 | Neurology Consultation ---
Date of Consultation October 30, 2020 Assessment & Plan (1) Cerebrovascular disease: (2) Hypertensive urgency: The observed brain MRI findings are most likely consistent with age advanced cerebrovascular disease occurring in the context of poorly controlled hypertension. Patient is currently admitted with hypertensive urgency presenting with dizziness, difficulty walking, and a feeling of numbness affecting the right arm and leg. There is no evidence of acute or subacute stroke on MRI. Her neurologic symptoms are probably related to hypertensive urgency. However, due to her persistent symptoms I would recommend obtaining a repeat brain MRI, this time with gadolinium enhancement to further exclude subacute infarct, active demyelination or inflammation, or possibly evolving hypertensive hemorrhage. 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 There was no evidence of carotid dissection on her recent MRA of the head and neck. The clinical significance of this examination finding is not entirely clear at this point in time. I would re commend completion of a gadolinium-enhanced MRI of the cervical spine as well. May also consider a CT angiogram of the head and neck although her MRA was unremarkable. Patient will need ongoing management of her hypertension going forward. I would also recommend obtaining a lipid panel. I will make further recommendations pending completion of the above imaging. History of Present Illness Reason for Consultation: Abnormal MRI Requesting Physician: Esperanza Zapata DO Attending Physician: Dimitri Lemus MD History of Present Illness The patient is a 45-year-old female who was admitted to [facility] on October 27 complaining of dizziness and difficulty walking in a straight line. Her symptoms began the day prior to her assessment in the emerg ency department. She was markedly hypertensive during her initial evaluation with blood pressure readings up to 196/101. She remarks that she has not seen her primary care physician in several years and had not been taking any medication for hypertension. She was preparing for discharge yesterday but difficulty transferring from hospital wheelchair to her daughter's car. She has been complaining of a feeling of numbness affecting the right arm and leg. She has difficulty ambulating but has been able to do so with a walker this morning. She does complain of some droopiness of the left upper eyelid and perhaps some subtle associated difficulty with focusing her vision. She denies any dizziness, vertigo, or any change in speech or swallowing. She denies headache. The patient did have a noncontrast brain MRI completed on October 28 that revealed mild scattered T2/flair hyperintensities within the subcortical and periventricular white matter of the cerebral hemispheres. These findings were observed by the interpreting radiologist. I reviewed the images as well and agree. CT angiography of the head and neck were unremarkable. A CT of the head completed October 27 was negative for acute abnormality. Family history negative for multiple sclerosis or stroke. Allergies Allergy/AdvReac Type Severity Reaction Status Date / Time No Known Allergies Allergy Unknown NKA Unverified 12/01/02 08:19 Home Medications Medication Instructions Recorded Confirmed Type ibuprofen [Advil] 200 mg PO Q6H PRN 10/27/20 10/27/20 History multivitamin 1 tab PO QAM 10/27/20 10/27/20 History multivitamin with minerals 1 tab PO DAILY 10/27/20 10/27/20 History [Hair,Skin and Nails] amlodipine [Norvasc] 5 mg PO QAM #30 tab 10/28/20 Rx lisinopril 20 mg PO QAM #30 tab 10/28/20 Rx Patient History Social History Smoking Status: Never smoker Do You Dip or Chew Tobacco: No; Hx Alcohol Use: No Hx Substance Use: No Preferred Language: Ghanaian Communication Ability: Effective Sales Producer Required: No Beliefs That Will Affect Care: None Current Living Situation: Alone Other Information That Helps Us Care for You: No Feels Safe at Home: Yes Safety Concerns: Feels Safe At This Time Review of Systems Constitutional: no fever and no chills Eyes: as per Subjective / HPI; no blind spots, no diplopia and no eye pain Ear, Nose, Mouth, Throat: no hearing loss Respiratory: no cough and no dyspnea Cardiovascular: no chest pain and no palpitations Gastrointestinal: no nausea and no vomiting Genitourinary: no dysuria Musculoskeletal: no neck pain and no myalgia Integumentary: no rash and no lesions Neurologic: as per Subjective / HPI, + unsteadiness and + loss of sensation; no tremor(s), no syncope, no headache(s), no confusion and no memory loss Psychiatric: no depression and no anxiety Hematologic / Lymphatic: no easy bleeding and no easy bruising Exam (Neuro) Constitutional: well developed and well nourished; no acute distress Eyes: normal visual gunter by confrontation, normal accommodation and EOM intact bilaterally; + no PERRL (Pupils round and reactive, left anisocoria), no fundoscopic abnormality, no nystagmus and no papilledema There is mild left upper lid ptosis Cardiovascular: Vessels: normal carotid upstroke; no carotid bruit Neurologic: Oriented to:: Person, Place and Time Memory: Short Term Intact and Remote Intact Attention: Span Intact and Concentration Intact Language: Naming Objects and Repeating Phrases Speech Fluency: negative Dysarthria Speech Aphasia: negative Aphasia Fund of Knowledge: Current Events, Past History and Vocabulary Cranial Nerves: Normal II (Visual gunter full to confrontation, visual acuity normal), III, IV, (Pupils round and reactive, left anisocoria noted), V (Facial sensation intact), VII (There is no facial droop or weakness), VIII (Hearing intact), IX, X (Palate elevates to midline), XI (Shoulder shrug intact) and XII (Tongue protrudes to midline) Motor Strength: Normal Lower Extremities and Normal Upper Extremities; negative Pronator Drift Motor Tone: Normal Lower Extremities and Normal Upper Extremities Muscle Bulk/Involuntary Movements: No Involuntary Movements; negative Muscle Atrophy Sensation: Light Touch Intact, Pain/Temperature Intact, Vibration Intact and Proprioception Intact Coordination: Normal; negative Limited Balance, Dysdiadochokinesia, Finger-Nose Abnormal and Heel-Lopez Abnormal Deep Tendon Reflexes: Rt Triceps: 2+, Lt Triceps: 2+, Rt Biceps: 2+, Lt Biceps: 2+, Rt Brachioradialis: 2+, Lt Brachioradialis: 2+, Rt Patellar: 2+, Lt Patellar: 2+, Rt Ankle: 2+ and Lt Ankle: 2+ Special Tests: negative Babinski Present Details: Gait not tested in the context of patient's current neurological/medical status. Results & Data ([facility]) Vital Signs (Past 12 Hours) Vital Signs Temp Pulse Resp BP BP Pulse Ox 10/30/20 08:19 36.7 C 84 154/94 H 95 10/30/20 03:08 36.8 C 95 H 16 125/77 95 10/29/20 23:02 36.9 C 80 16 144/88 H 97 Laboratory Results WBC 11.48, hemoglobin 13.9, hematocrit 42.1, platelet count 372, sodium 139, potassium 4.1, BUN 8, creatinine 0.67, glucose 101, calcium 9.3, vitamin B12 281, folate 9.40, TSH 0.99, Lyme antibody screen negative Diagnostic Findings CT of the head, MRI of the brain, and MR angiography of the head and neck are as described in the history of present illness. Electrocardiogram reveals a normal sinus rhythm, 76 bpm Coding Level of Care Code 06235 Office/OBS Consult Lvl 5 Diagnoses Cerebrovascular disease I67.9 Hypertensive urgency I16.0
--- NOTE | 2020-10-30 09:18 | Hospitalist Progress Note ---
Date of Service October 30, 2020 Assessment & Plan (1) Hypertensive urgency: 45-year-old female with no significant documented past medical history presents with concerns of dizziness admitted for hypertensive urgency. 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 Punctate 3 mm focus of restricted diffusion within the left lateral inferior medulla consistent with an acute infarct. 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 2. No intracranial mass or pathologic enhancement. 3. Numerous white matter T2 hyperintense foci. These are nonspecific and may reflect small vessel disease (greater than expected for age). Although less likely, a demyelinating process could appear similar. Improved with lisinopril 20 mg and p.o. amlodipine 5 mg Pt had been without hormonal control for at least 2 years until her Nexplanon was replaced in August Of note, when discussing her stress, I did mention the possibility of short term SSRI use as pt reports feeling overwhelmed often Pt does not wish to start this now given the other new medications, but I did advise her to d/w new PCP Patient does not have a PCP, she requested referral to [facility] at [facility] c/s sent to request set up new pt appt when offices open on Friday (2) Ambulatory dysfunction: MRI noted for CVA, will check echo for embolic source, asa started check lipids in am and start statin, also check hypercoagulable panel. according to package insert Etonogestrel implant should be removed in the event of thrombosis. In order to minimize the risk of thrombosis, consider the removal of the etonogestrel implant for patients with prolonged immobilization due to surgery or illness. PT/OT eval may need rehab Start B12 injections QD x5 (first 10/29), then to Qweek x4, then Qmonth Start B1 PO Admission and Anticipated Discharge Date Admission Date: October 29, 2020 Subjective Patient still with persistent right hand and leg numbness she is slight dysmetria with her left hand to her nose. She is right-handed. She has good strength to her arms and legs. She was found to have a small stroke on repeat MRI imaging of her brain. She is currently pending an echocardiogram for an embolic source lipid panel and hypercoagulable panel. She is weak and is concerned about ambulating she will have PT OT evaluation to determine if she is a candidate for rehab Review of Systems Review of Systems: Mild distress and fatigue no headache, blurry or double vision no speech or swallowing issues no chest pain, pressure or palpitations no shortness of breath, cough or wheezes no abdominal pain, nausea or vomiting, diarrhea or constipation no dysuria, hematuria or frequency no focal joint pain or swelling no back pain, CVA tenderness or radicular pain no bruising, bleeding or rashes Has some persistent paresthesias and weakness of gait or possible coordination problems no complaints of anxiety or depression.. Physical Exam Physical Exam: The patient appeared well nourished and normally developed. Vital signs as documented. Head exam is normocephalic atraumatic no scleral icterus Neck is without JVD, thyromegaly, or carotid bruits. Lungs are clear to auscultation, no focal loss of breath sounds Cardiac exam, Rhythm is regular.. No murmurs, rubs or gallops. Abdominal exam reveals normal bowel sounds, soft non tender, no masses Extremities are nonedematous and both pedal pulses are present Neurologic exam is alert and oriented, patient has good strength to her lower extremities and upper extremities however some slight dysmetria more with her left hand although she is right-handed. She complains of paresthesias to her right hand and right leg she has difficulty walking perhaps from difficulty sensing position Skin is without bruises or rashes Psychologically is without concerns for anxiety or depression. Results & Data Results & Data ([facility]) Vital Signs (Past 12 Hours) Vital Signs Temp Pulse Resp BP BP Pulse Ox 10/30/20 08:19 98.1 F 84 154/94 H 95 10/30/20 03:08 98.2 F 95 H 16 125/77 95 10/29/20 23:02 98.4 F 80 16 144/88 H 97 PG Care Time/CCT Total # of Minutes Spent Total Time Spent with Patient: Total time spent is greater than 50% in coordination of care (as documented) at patient's floor/unit and/or counseling patient: Coding Level of Care Code 43729 Subseq Hosp Care Lvl 3 Diagnoses Hypertensive urgency I16.0 Ambulatory dysfunction R26.2
[2020-10-30] MEDS ORDERED: GADOBUTROL 65ML VIAL IV ONE (13:25)
--- NOTE | 2020-10-30 14:13 | Magnetic Resonance Report ---
MRI OF THE BRAIN WITHOUT AND WITH IV CONTRAST CLINICAL HISTORY: left Ivett's, right sided numbness, HTN urgency COMPARISON STUDY: MRI brain October 28, 2020. Head CT October 27, 2020. TECHNIQUE: Utilizing a 1.5 Alma Rosa magnet and dedicated coil, multiplanar, multiecho imaging of the br ain was performed pre and postcontrast administration. IV administration of 7 mL of Gadavist contras t was uneventful. FINDINGS: Note is made of a punctate 3 mm focus of restricted diffusion within the left lateral aspec t of the inferior medulla shown on axial diffusion-weighted sequence image 3 of . Correlation with ADC map is difficult given its small size however this suggests a small acute infarct. There is no ma ss effect or hemorrhage. A corresponding 3 mm T2 hyperintense focus is noted. No additional foci of r estricted diffusion are noted. Ventricular system is normal. Basal cisterns are patent. There are no extra-axial collections. There is no intracranial mass or pathologic enhancement. There may be a smal l arachnoid cyst overlying the posterior medial aspect of the left frontal lobe. Numerous white matte r T2 hyperintense foci are noted. These are unchanged since prior MRI. Calvarial signal is normal. Or bits are unremarkable. IMPRESSION: 1. Punctate 3 mm focus of restricted diffusion within the left lateral inferior medulla consistent wi th an acute infarct. 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 2. No intracranial mass or pathologic enhancement. 3. Numerous white matter T2 hyperintense foci. These are nonspecific and may reflect small vessel dis ease (greater than expected for age). Although less likely, a demyelinating process could appear june lar. ACT 112: Negative or not required by law. Electronically signed by: Ronn Washington M.D. 10/30/2020 2:12 PM
--- NOTE | 2020-10-30 14:24 | Magnetic Resonance Report ---
MR cervical spine wo/w con HISTORY: 45 years-old Female left Ivett's, right sided numbness, HTN urgency, acute right arm numbn ess COMPARISON: Brain MRI 10/28/2020 TECHNIQUE: Multiplanar and multisequence MRI of the cervical spine was obtained both with and without the use of 7.0 mL Gadavist FINDINGS: The filter machine operator localizer images demonstrate no gross extraspinal abnormality. Study is mildly motion degra ded. Imaged posterior fossa structures are unremarkable. There is a 4 mm T2 hyperintense focus involv ing the left lateral aspect of the inferior medulla which demonstrates restricted diffusion on the MR I brain study of same day There is no acute fracture, subluxation, bone marrow or soft tissue edema. There is no abnormal enhancement. C2-C3: No central canal or neuroforaminal narrowing. C3-C4: No central canal or neuroforaminal narrowing. C4-C5: No central canal or neuroforaminal narrowing. Tiny bilateral Tarlov cysts measure up to 4 mm o n the left. C5-C6: Mild intervertebral disc space narrowing with spondylitic spurring. Annular fissure with small left lateral recess disc protrusion and uncovertebral spurring is noted on image 53 series 13, resul ting in moderate left lateral recess narrowing with moderate left foraminal stenosis. Mild to moderat e right foraminal stenosis. No significant central canal stenosis. C6-C7: Mild intervertebral disc space narrowing with spondylitic spurring. Posterior disc osteophyte complex favors the left lateral recess. Moderate left lateral recess narrowing. Mild central canal st enosis, AP dimension of the thecal sac measures 8 mm. Patent neuroforamina. IMPRESSION: 1. 4 mm T2 hyperintense focus within the left lateral aspect of the inferior medulla correlates with the area of restricted diffusion on the brain MRI of same day. Please refer to the aforementioned alissa dy for additional details. 2. 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 3. Discogenic degeneration at C6-C7 results in moderate left lateral recess narrowing with mild centr al canal stenosis. 4. No high-grade central canal or foraminal narrowing. 5. No abnormal enhancement. ACT 112: Negative or not required by law. The above report was generated using voice recognition software. It may contain grammatical, syntax o r spelling errors. Electronically signed by: Austin Easton M.D. 10/30/2020 2:23 PM
[2020-10-30] MEDS ORDERED: ASPIRIN 81 MG CHEW PO STA (14:59)
--- NOTE | 2020-10-30 18:10 | Hospitalist Progress Note ---
Date of Service October 30, 2020 Assessment & Plan (1) Hypertensive urgency: 45-year-old female with no significant documented past medical history presents with concerns of dizziness admitted for hypertensive crisis treatded and resolved. 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 Punctate 3 mm focus of restricted diffusion within the left lateral inferior medulla consistent with an acute infarct. 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 2. No intracranial mass or pathologic enhancement. 3. Numerous white matter T2 hyperintense foci. These are nonspecific and may reflect small vessel disease (greater than expected for age). Although less likely, a demyelinating process could appear similar. Improved with lisinopril 20 mg and p.o. amlodipine 5 mg Pt had been without hormonal control for at least 2 years until her Nexplanon was replaced in August Of note, when discussing her stress, I did mention the possibility of short term SSRI use as pt reports feeling overwhelmed often Pt does not wish to start this now given the other new medications, but I did advise her to d/w new PCP Patient does not have a PCP, she requested referral to [facility] at [facility] c/s sent to request set up new pt appt when offices open on Friday (2) Ambulatory dysfunction: MRI noted for CVA, will check echo for embolic source, asa started check lipids in am and start statin, also check hypercoagulable panel. according to package insert Etonogestrel implant should be removed in the event of thrombosis. In order to minimize the risk of thrombosis, consider the removal of the etonogestrel implant for patients with prolonged immobilization due to surgery or illness. PT/OT eval may need rehab Start B12 injections QD x5 (first 10/29), then to Qweek x4, then Qmonth Start B1 PO Admission and Anticipated Discharge Date Admission Date: October 29, 2020 Results & Data Results & Data ([facility]) Vital Signs (Past 12 Hours) Vital Signs Temp Pulse Pulse Resp BP BP Pulse Ox 10/30/20 15:15 85 10/30/20 14:53 98.1 F 91 H 18 136/85 100 10/30/20 11:13 97.7 F 100 H 20 133/87 152/101 H 97 10/30/20 08:19 98.1 F 84 154/94 H 95 PG Care Time/CCT Total # of Minutes Spent Total Time Spent with Patient: Total time spent is greater than 50% in coordination of care (as documented) at patient's floor/unit and/or counseling patient: Coding Level of Care Code None Diagnoses Hypertensive urgency I16.0 Ambulatory dysfunction R26.2
[2020-10-31] MEDS: lisinopril 20 MG TAB PO SCH (07:30)
[2020-10-31] MEDS: amLODIPine BESYLATE 5 MG TAB PO SCH (07:31)
[2020-10-31] MEDS: THIAMINE HCL 100 MG TAB PO SCH (07:31)
[2020-10-31] MEDS: CYANOCOBALAMIN 1000 MCG/ML VIAL IM SCH (07:31)
[2020-10-31 07:33] LABS: Chol HDL Ratio 5; Cholesterol 182 mg/dl (0-200); HDL Cholesterol 38 mg/dl; LDL Cholesterol Calculated 122 mg/dl; Triglycerides 112 mg/dl (0-150); VLDL Cholesterol 22 mg/dl
[2020-10-31] MEDS ORDERED: POLYETHYLENE (MIRALAX) 17 GM PACK PO ONE (08:11)
[2020-10-31] MEDS ORDERED: ASPIRIN 81 MG ECTAB PO SCH ×2 (09:00)
[2020-10-31] MEDS ORDERED: ATORVASTATIN 40 MG TAB PO SCH (09:00)
--- NOTE | 2020-10-31 11:40 | XCELERA ---
[id number]
--- NOTE | 2020-10-31 14:43 | Discharge Summary ---
Date of Service October 31, 2020 Admission HPI Per Admitting Provider 45-year-old female with no significant documented past medical history presents with concerns of dizziness that started yesterday afternoon. Patient notes that she was at work and felt dizzy, unsteady on her feet. However she attributed this to not eating or drinking all day. This morning when patient woke up she noted that the dizziness was even worse. Noting that she had to 'crawl to the bathroom.' No previous occurrence such as this ever before. Associated fatigue and headache. Patient otherwise denies any fevers, chills, sweats, chest pain, palpitations, shortness of breath, syncope or presyncope, diaphoresis, edema, visual changes, abdominal pain, urinary symptoms, recent travel anywhere or known sick contacts. Denies any other neurologic deficits such as slurred speech, focal weakness or numbness anywhere. Patient with no other acute concerns complaints. Upon arrival to ER BP as high as 243/179. Patient does endorse family history of hypertension in her father. Of note patient does not follow with any sort of PCP/family doctor. Does note that when she has gone to the dentist in the past they have told her that she has high blood pressure, patient does not recall exact numbers. Pertinent labs: Unremarkable CBC CMP EKG: NSR Chest x-ray: No active disease in the chest. Head CT: No acute intracranial abnormality. ER course: IV Benadryl 25 mg, IV hydralazine 10 mg x 2, IV labetalol 10 mg, IV Zofran 4 mg Principal Diagnosis left medullary stroke Hypertensive emergency ambulatory dysfunction Discharge Exam The patient appeared to have some limitations from stroke but PT/OT feels she can go home with walker and outpt therapy Vital signs as documented. Lungs are clear to auscultation and appear unlabored Cardiac exam, Rhythm is regular.. No murmurs, rubs or gallops. Abdominal exam reveals normal bowel sounds, soft non tender, no masses Extremities are nonedematous and both pedal pulses are normal. Neurologic exam is alert and oriented, she has some right sided weakness of arm and leg Skin is without bruises or rashes Psychologically is without concerns for anxiety or depression. Discharge Data Allergies Allergy/AdvReac Type Severity Reaction Status Date / Time No Known Allergies Allergy Unknown NKA Unverified 12/01/02 08:19 Consultations 10/27/20 20:00 ED Decision to Admit Stat 10/28/20 00:17 Consult Case Management - Discharge Planning Routine 10/28/20 15:02 Consult Case Management - Discharge Planning Routine Consult ANITRAG railcar carpenter Routine 10/29/20 10:36 Consult Neurology Routine Ordered Studies 10/27/20 17:10 CT head/brain wo con Stat 10/28/20 19:23 MR angio head wo con Urgent MR angio neck wo/w con Urgent MR brain wo con Urgent 10/30/20 09:27 MR brain wo/w con Routine MR cervical spine wo/w con Routine Hospital Course (1) Hypertensive urgency: 45-year-old female with no significant documented past medical history presents with concerns of dizziness admitted for hypertensive crisis treatded and resolved. 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 Punctate 3 mm focus of restricted diffusion within the left lateral inferior medulla consistent with an acute infarct. 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 2. No intracranial mass or pathologic enhancement. 3. Numerous white matter T2 hyperintense foci. These are nonspecific and may reflect small vessel disease (greater than expected for age). Although less likely, a demyelinating process could appear similar. Improved with lisinopril 20 mg and p.o. amlodipine 5 mg Neurology recommends aspirin 81 and atorvastatin 40, will also have plavic 75 daily for 3 weeks and have follow up with neurology Dr hall Pt had been without hormonal control for at least 2 years until her Nexplanon was replaced in August will have Nexplanan removed at Gyne office I personally called and they will have her in at next available appointment Patient does not have a PCP, she requested referral to [facility] c/s sent to request set up new pt appt (2) Ambulatory dysfunction: MRI noted for CVA, will check echo for embolic source, asa started check lipids in am and start statin, also check hypercoagulable panel. according to package insert Etonogestrel implant should be removed in the event of thrombosis.will coordinate with Gyne office PT/OT eval will continue with outpt rehab Start B12 injections will hopefully be continued thru outpt offices Start B1 PO Total Time Total Time Spent Total Time Spent (In Minutes): It required greater than 30 minutes to prepare this patient for discharge Discharge Plan Discharge Items Patient Disposition: Home - Self-Care Reason For Visit: HTN Discharge Diagnosis: left medullary stroke Hypertensive emergency Activity: Resume your previous activity Non-emergency contact: Primary Care Provider and Rack Cleaner Call non-emergency contact if: you have any medication questions and your symptoms worsen Follow-up/Referrals: Harman Hall MD [Physician] - 12/18/20 2:00 pm (You have an appt with Dr. Hall on 12/18 at 2pm. Please arrive 15 minutes prior to your appt. If Dr. Hall wants to see you sooner, his office will call you. If for any reason you cannot make this appt, please call [phone] to reschedule. ) PCP,NO [Primary Care Provider] - Diet: Low Sodium (2gm) Addtl Attending Provider Instructions: please take your asprin and atorvastatin daily You only need plavix daily for 3 weeks then stop You will need to get a blood pressure cuff to monitor your blood pressure. This will help us to determine if you are on too much or not enough medication. you will need neurology follow up Please follow up at [facility] gyne office to have your nexplanon removed and discuss alternatives for other control this office will call for a follow up it maybe as soon as tomorrow at 8 am. Risk Factors for Stroke: You can reduce your chances of stroke by working with your medical provider to adopt a healthy lifestyle. Some specific ways to lower your chance of stroke are: * Avoid excessive amounts of alcohol * Control high blood pressure * Lose weight to help better manage your blood pressure * Be sure to lead an active lifestyle * Eat a healthy diet low in salt, cholesterol and fat Follow Up: It is important for you to keep your follow up appointments with your medical provider. Who to Call and When: Medical Emergencies: Call 911 immediately if you experience any of the following warning signs and symptoms of Stroke: * Sudden numbness or weakness of the face, arm or leg, especially on one side of the body * Sudden confusion, trouble speaking or understanding * Sudden trouble seeing in one or both eyes * Sudden trouble walking, dizziness, loss of balance or coordination * Sudden severe headache with no cause Do not delay calling 911 if you experience any warning signs or symptoms of a stroke. Delay in seeking medical attention may affect what treatments can be given to you. . You should establish care with a PCP as soon as possible. I did ask our case management to help you with this. Pending Studies at Discharge: No Stand-Alone Forms: My [facility], Smoking Cessation Medications and DC Order Prescriptions: New lisinopril 20 mg Tablet 20 mg PO QAM Qty: 30 RF: 1 amlodipine [Norvasc] 5 mg Tablet 5 mg PO QAM Qty: 30 RF: 1 atorvastatin 40 mg Tablet 40 mg PO QAM Qty: 30 RF: 5 clopidogrel 75 mg Tablet 75 mg PO QAM Qty: 21 RF: 0 Continued multivitamin Tablet 1 tab PO QAM RF: 0 ibuprofen [Advil] 200 mg Tablet 200 mg PO Q6H PRN (Reason: Pain) RF: 0 multivitamin with minerals [Hair,Skin and Nails] Tablet 1 tab PO DAILY RF: 0 Discharge Orders: Discharge Order (Routine); Ordered 10/31/20 Ordered By: Dimitri Lemus Admission Data Admit Date/Time: 10/29/20 10:42 Attending Provider: Dimitri Lemus Admit Provider: Walter Miller Primary Care Provider: PCP,NO Other Providers: Wilmer Hawley Christina R. Other Interventions: Discharge Summary Assessment (RN) Last Done: 10/28/20 15:30 Coding Level of Care Code D/C Day Management >30 mins Diagnoses Hypertensive urgency I16.0 Ambulatory dysfunction R26.2
[2020-11-01] MEDS ORDERED: CLOPIDOGREL BISULFATE 75 MG TAB PO SCH (09:00)
[2020-11-03 00:37] LABS: Anti Cardiolipin Ab IgG <14 GPL; Anti Cardiolipin Ab IgM <12 MPL; Anti-Thrombin III Activity 136 % normal (80-135); PTT LA Screen 34 sec (<=40); Protein S Functional(Activity) 121 % (60-140)
--- NOTE | 2020-11-23 06:51 | Coding Query ---
PRESENT ON ADMISSION QUERY To promote full compliance with coding requirements relating to pateint care, physician participation is requested in all cases of invoice coder uncertainty. Please assist us with the question(s) below: Please place an X within the parenthesis (x). The following diagnosis(es) listed in this patient's medical record require physician assistance to determine if they were present on admission (POA) or not. Please advise for each diagnosis whether it was present on admission, not present on admission, or if it was clinically undetermined. 1. HYPERTENSIVE EMERGENCY (documented on Discharge Summary) (xxxxx ) Present On Admission ( ) Not Present On Admission ( ) Clinically Undetermined Thank you Salome Canales *Definition of the present on admission (POA)-Present on admission is defined as present at the time the order for inpatient admission occurs. Conditions that develop during an outpatient encounter prior to a written order for inpatient admission (including emergency department, observation, or outpatient surgery) are considered present on admission. MTDD
== END 2020-10-31 17:20 | disposition home or self-care (01) | DRG 304 ==
LOC: ED 16:11 → 2N 16:11 → SUATTDRO 21:39 → 2N 23:36 → SUATTDRO 10-29 10:42